=== PATIENT | female | born 1985 | race African-American/Black ===

== ENCOUNTER 2017-12-21 11:15 | Day surgery (SDC) | payer SELFPAY ==
[2017-12-21] MEDS ORDERED: Lactated Ringers 1,000 ML IV SCH (12:15)
--- NOTE | 2017-12-21 12:41 | PCM.PREANE ---
Preanesthetic Assessment - Anesthesia/Transfusion/Family Hx Anesthesia History: Prior Anesthesia Without Reaction Family History of Anesthesia Reaction: No Transfusion History: No Prior Transfusion(s) Intubation History: Unknown - Review of Systems General: No Symptoms Pulmonary: No Symptoms Cardiovascular: No Symptoms Gastrointestinal: No Symptoms Neurological: No Symptoms Other: Reports: None - Physical Assessment Height: 1.73 m Weight: 87.543 kg ASA Class: 2 Mental Status: Alert & Oriented x3 Airway Class: Mallampati = 2 Dentition: Reports: Normal Dentition Thyro-Mental Finger Breadths: 3 Mouth Opening Finger Breadths: 3 ROM/Head Extension: Full Lungs: Clear to Auscultation, Normal Respiratory Effort Cardiovascular: Regular Rate, Regular Rhythm - Allergies Allergies/Adverse Reactions: Allergies Allergy/AdvReac Type Severity Reaction Status Date / Time No Known Allergies Allergy Verified 12/21/17 08:10 - Blood Blood Available: No - Anesthesia Plan Pre-Op Medication Ordered: None - Acknowledgements Anesthesia Type Planned: General Anesthesia Pt an Appropriate Candidate for the Planned Anesthesia: Yes Alternatives and Risks of Anesthesia Discussed w Pt/Guardian: Yes Pt/Guardian Understands and Agrees with Anesthesia Plan: Yes 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
[2017-12-21] MEDS ORDERED: fentaNYL 100 MCG/2 ML SDV ONE (12:57)
[2017-12-21] MEDS ORDERED: Ondansetron 4 MG/2 ML SDV ONE (12:57)
[2017-12-21] MEDS ORDERED: Midazolam 1 MG/ML 2 ML SDV ONE (12:57)
[2017-12-21] MEDS ORDERED: Lidocaine 2% 5 ML SDV ONE (12:57)
[2017-12-21] MEDS ORDERED: Propofol 200 MG/20 ML SDV ONE (12:57)
[2017-12-21] MEDS ORDERED: Ketorolac 30 MG/ML SDV ONE (13:57)
[2017-12-21] MEDS ORDERED: fentaNYL 100 MCG/2 ML SDV IVPUSH PRN (13:59)
[2017-12-21] MEDS ORDERED: Promethazine 25 MG/ML SDV IM PRN (14:06)
[2017-12-21] MEDS ORDERED: Ketorolac 30 MG/ML SDV IVPUSH ONE (14:06)
[2017-12-21] MEDS ORDERED: Ondansetron 4 MG/2 ML SDV IVPUSH PRN (14:06)
[2017-12-21] MEDS ORDERED: Morphine 4 MG/ML Syringe IVPUSH PRN (14:06)
[2017-12-21] MEDS ORDERED: Acetaminophen/oxyCODONE 325-5 MG Tab PO PRN ×2 (14:06)
[2017-12-21] MEDS ORDERED: Ketorolac 30 MG/ML SDV IVPUSH PRN (14:06)
--- NOTE | 2017-12-21 14:10 | PCM.OPNOTE ---
- General Post-Op/Procedure Note Date of Surgery/Procedure: 12/21/17 Operative Procedure(s): D&E Pre Op Diagnosis: Blighted ovum Post-Op Diagnosis: Same Anesthesia Technique: General LMA Primary Surgeon: Fco Red EBL in mLs: 200 Complications: None Condition: Good
--- NOTE | 2017-12-21 14:11 | PCM.DCSUM1 ---
Discharge Summary - Discharge Data Discharge Date: 12/21/17 Discharge Disposition: Home, Self-Care 01 Condition: Good - Patient Summary/Data Operative Procedure(s) Performed: D&E - Patient Instructions Diet: Usual Diet as Tolerated Activity: As Tolerated Driving: Do Not Drive Showering/Bathing: May Shower Notify Provider of: Fever, Increased Pain, Nausea and/or Vomiting - Discharge Plan Home Medications: Home Meds Ondansetron HCl [Zofran] 4 mg PO Q6H PRN 12/21/17 [History] - General Info Date of Service: 12/21/17 Functional Status: Reports: Pain Controlled - Review of Systems General: Reports: No Symptoms HEENT: Reports: No Symptoms Pulmonary: Reports: No Symptoms Cardiovascular: Reports: No Symptoms Gastrointestinal: Reports: No Symptoms Genitourinary: Reports: No Symptoms Musculoskeletal: Reports: No Symptoms Skin: Reports: No Symptoms Neurological: Reports: No Symptoms Psychiatric: Reports: No Symptoms - Patient Data Vitals - Most Recent: Last Vital Signs Temp 36.7 C 12/21/17 13:44 Pulse 74 12/21/17 13:44 Resp 16 12/21/17 13:44 BP 136/79 12/21/17 13:44 Pulse Ox 98 12/21/17 13:44 Weight - Most Recent: 87.543 kg Lab Results - Last 24 hrs: Laboratory Results - last 24 hr 12/21/17 12/21/17 Range/Units 13:15 13:15 WBC 5.33 (4.0-11.0) K/uL RBC 4.30 (4.30-5.90) M/uL Hgb 12.6 (12.0-16.0) g/dL Hct 37.1 (36.0-46.0) % MCV 86.3 (80.0-98.0) fL MCH 29.3 (27.0-32.0) pg MCHC 34.0 (31.0-37.0) g/dL RDW Std Deviation 41.9 (28.0-62.0) fl RDW Coeff of Vipul 13 (11.0-15.0) % Plt Count 214 (150-400) K/uL MPV 11.20 (7.40-12.00) fL Neut % (Auto) 52.3 (48.0-80.0) % Lymph % (Auto) 41.5 H (16.0-40.0) % [place] % (Auto) 5.6 (0.0-15.0) % Eos % (Auto) 0.4 (0.0-7.0) % Baso % (Auto) 0.2 (0.0-1.5) % Neut # (Auto) 2.8 (1.4-5.7) K/uL Lymph # (Auto) 2.2 (0.6-2.4) K/uL [place] # (Auto) 0.3 (0.0-0.8) K/uL Eos # (Auto) 0.0 (0.0-0.7) K/uL Baso # (Auto) 0.0 (0.0-0.1) K/uL Nucleated RBC % 0.0 /100WBC Nucleated RBCs # 0 K/uL Blood Type O POSITIVE Antibody Screen NEGATIVE Med Orders - Current: Current Medications Fentanyl (Sublimaze) 50 mcg IVPUSH .Q5MIN PRN PRN Reason: Pain Lactated Ringer's (Ringers, Lactated) 1,000 mls @ 125 mls/hr IV ASDIRECTED REHAN Last Admin: 12/21/17 12:30 Dose: 125 mls/hr Ketorolac Tromethamine (Toradol) 30 mg IVPUSH ONETIME ONE Stop: 12/21/17 14:07 Ketorolac Tromethamine (Toradol) 30 mg IVPUSH Q6H PRN PRN Reason: Pain (severe 7-10) Stop: 12/26/17 14:06 Morphine Sulfate (Morphine) 4 mg IVPUSH Q2H PRN PRN Reason: Pain (severe 7-10) Ondansetron HCl (Zofran) 4 mg IVPUSH Q6H PRN PRN Reason: Nausea/Vomiting Oxycodone/Acetaminophen (Percocet 325-5 Mg) 1 tab PO Q4H PRN PRN Reason: Pain (moderate 4-6) Oxycodone/Acetaminophen (Percocet 325-5 Mg) 2 tab PO Q4H PRN PRN Reason: Pain (moderate 4-6) Promethazine HCl (Phenergan) 25 mg IM Q6H PRN PRN Reason: Nausea/Vomiting Discontinued Medications Fentanyl (Sublimaze) Confirm Administered Dose 100 mcg .ROUTE .STK-MED ONE Stop: 12/21/17 12:58 Ketorolac Tromethamine (Toradol) Confirm Administered Dose 30 mg .ROUTE .STK- MED ONE Stop: 12/21/17 13:58 Lidocaine (Xylocaine-Mpf 2%) Confirm Administered Dose 5 ml .ROUTE .STK-MED ONE Stop: 12/21/17 12:58 Midazolam HCl (Versed 1 Mg/Ml) Confirm Administered Dose 2 mg .ROUTE .STK-MED ONE Stop: 12/21/17 12:58 Ondansetron HCl (Zofran) Confirm Administered Dose 4 mg .ROUTE .STK-MED ONE Stop: 12/21/17 12:58 Propofol (Diprivan 20 Ml) Confirm Administered Dose 200 mg .ROUTE .STK-MED ONE Stop: 12/21/17 12:58 - Exam General: Reports: Alert, Oriented HEENT: Reports: Pupils Equal, Pupils Reactive, EOMI, Mucous Membr. Moist/Natalia Neck: Reports: Supple Lungs: Reports: Clear to Auscultation, Normal Respiratory Effort Cardiovascular: Reports: Regular Rate, Regular Rhythm GI/Abdominal Exam: Normal Bowel Sounds, Soft, Non-Tender, No Organomegaly, No Distention, No Abnormal Bruit, No Mass, Pelvis Stable (Female) Exam: Normal External Exam, Normal Speculum Exam, Normal Bimanual Exam Rectal (Female) Exam: Normal Exam, Normal Rectal Tone Back Exam: Reports: Normal Inspection, Full Range of Motion Extremities: Normal Inspection, Normal Range of Motion, Non-Tender, No Pedal Edema, Normal Capillary Refill Skin: Reports: Warm, Dry, Intact Wound/Incisions: Reports: Healing Well Neurological: Reports: No New Focal Deficit Psy/Mental Status: Reports: Alert, Normal Affect, Normal Mood
--- NOTE | 2017-12-21 14:32 | PCM.POSTAN ---
POST ANESTHESIA ASSESSMENT - MENTAL STATUS Mental Status: Alert, Oriented - RESPIRATORY Respiratory Status: Respiratory Rate WNL, Airway Patent, O2 Saturation Stable - CARDIOVASCULAR CV Status: Pulse Rate WNL - GASTROINTESTINAL GI Status: No Symptoms - PAIN Pain Score: 4 - POST OP HYDRATION Hydration Status: Adequate & Stable - OBSERVATIONS Free Text/Narrative:: no anesthesia problems
--- NOTE | 2017-12-21 15:02 | OR ---
SURGEON: Fco Red MD DATE OF PROCEDURE: PREOPERATIVE DIAGNOSIS: Blighted ovum. POSTOPERATIVE DIAGNOSIS: Blighted ovum. OPERATION PERFORMED: Dilatation and evacuation. 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 ANESTHESIA: LMA, Ariadna Bautista. ESTIMATED BLOOD LOSS: 200 mL. COMPLICATIONS: None. FINDINGS: Products of conception. INDICATION FOR SURGERY: This patient has had declining beta HCG CALDERON. She had repeated ultrasound, which shows gestational sac, no pole. PROCEDURE IN DETAIL: The patient was brought to the OR, properly identified. After adequate level of anesthesia, the patient placed in lithotomy position, prepped and draped in sterile fashion as usual. Straight catheter was used to empty the bladder and single-tooth tenaculum was applied to the cervix. The cervix sequentially dilated to accommodate #8 curved cannula. The cannula placed in endometrial cavity and endometrial cavity evacuated completely in uniformity from all products of conception. After that, the cannula was withdrawn and a small curette placed in endometrial cavity and curetting of the endometrial cavity was done to ascertain that all products of conception were removed. Next the cannula replaced in the endometrial cavity and evacuated all blood and blood clot from the endometrial cavity. At this time, the cannula was removed and there was minimum vaginal bleeding, but the total estimated blood loss was about 200 mL. The procedure ended. Instrument and sponge count was correct. The patient tolerated the procedure well, went to recovery room in stable general condition. DESHAUN / ROSA /[id number]
== END 2017-12-21 15:10 | disposition home or self-care (01) ==
LOC: MW.SDS 11:15
PROVIDERS: ATTEND Obstetrics & Gynecology
DX: O02.0 Blighted ovum and nonhydatidiform mole (principal)
CPT/HCPCS: 36415; 59812; 85025; 86850; 86900; 86901; J1885; J2250; J2405; J3010; J7120; 88305; J2704

== ENCOUNTER 2018-12-24 15:23 | Day surgery (SDC) | payer BC ==
--- NOTE | 2018-12-24 16:15 | PCM.PREANE ---
Preanesthetic Assessment - Anesthesia/Transfusion/Family Hx Anesthesia History: Prior Anesthesia Without Reaction Family History of Anesthesia Reaction: No Transfusion History: No Prior Transfusion(s) Intubation History: Unknown - Review of Systems General: No Symptoms Pulmonary: No Symptoms Cardiovascular: No Symptoms Gastrointestinal: No Symptoms Neurological: No Symptoms Other: Reports: None - Physical Assessment O2 Sat by Pulse Oximetry: 100 Respiratory Rate: 16 Vital Signs: Last Vital Signs Temp 36.6 C 12/24/18 15:39 Pulse 61 12/24/18 15:39 Resp 16 12/24/18 15:39 BP 122/73 12/24/18 15:39 Pulse Ox 100 12/24/18 15:39 Height: 1.73 m Weight: 86.863 kg ASA Class: 1E Mental Status: Alert & Oriented x3 Airway Class: Mallampati = 1 Dentition: Reports: Normal Dentition ROM/Head Extension: Full Lungs: Clear to Auscultation Cardiovascular: Regular Rate - Lab Values: Laboratory Last Values WBC 5.54 K/uL (4.0-11.0) 12/24/18 15:53 RBC 4.41 M/uL (4.30-5.90) 12/24/18 15:53 Hgb 12.6 g/dL (12.0-16.0) 12/24/18 15:53 Hct 38.4 % (36.0-46.0) 12/24/18 15:53 MCV 87.1 fL (80.0-98.0) 12/24/18 15:53 MCH 28.6 pg (27.0-32.0) 12/24/18 15:53 MCHC 32.8 g/dL (31.0-37.0) 12/24/18 15:53 RDW Std Deviation 40.3 fl (28.0-62.0) 12/24/18 15:53 RDW Coeff of Vipul 13 % (11.0-15.0) 12/24/18 15:53 Plt Count 303 K/uL (150-400) 12/24/18 15:53 MPV 11.10 fL (7.40-12.00) 12/24/18 15:53 Neut % (Auto) 50.3 % (48.0-80.0) 12/24/18 15:53 Lymph % (Auto) 41.5 % (16.0-40.0) H 12/24/18 15:53 [place] % (Auto) 6.7 % (0.0-15.0) 12/24/18 15:53 Eos % (Auto) 1.3 % (0.0-7.0) 12/24/18 15:53 Baso % (Auto) 0.2 % (0.0-1.5) 12/24/18 15:53 Neut # (Auto) 2.8 K/uL (1.4-5.7) 12/24/18 15:53 Lymph # (Auto) 2.3 K/uL (0.6-2.4) 12/24/18 15:53 [place] # (Auto) 0.4 K/uL (0.0-0.8) 12/24/18 15:53 Eos # (Auto) 0.1 K/uL (0.0-0.7) 12/24/18 15:53 Baso # (Auto) 0.0 K/uL (0.0-0.1) 12/24/18 15:53 Nucleated RBC % 0.0 /100WBC 12/24/18 15:53 Nucleated RBCs # 0 K/uL 12/24/18 15:53 - Allergies Allergies/Adverse Reactions: Allergies Allergy/AdvReac Type Severity Reaction Status Date / Time No Known Allergies Allergy Verified 12/21/17 08:10 - Acknowledgements Anesthesia Type Planned: General Anesthesia Pt an Appropriate Candidate for the Planned Anesthesia: Yes Alternatives and Risks of Anesthesia Discussed w Pt/Guardian: Yes Pt/Guardian Understands and Agrees with Anesthesia Plan: Yes 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
[2018-12-24] MEDS ORDERED: Doxycycline 100 MG Cap PO ONE (16:22)
[2018-12-24] MEDS ORDERED: fentaNYL 100 MCG/2 ML SDV ONE ×2 (16:45→18:17)
[2018-12-24] MEDS ORDERED: Propofol 200 MG/20 ML SDV ONE (16:45)
[2018-12-24] MEDS ORDERED: Dexamethasone 4 MG/ML 5 ML MDV ONE (16:45)
[2018-12-24] MEDS ORDERED: Ondansetron 4 MG/2 ML SDV ONE (16:45)
[2018-12-24] MEDS ORDERED: Rocuronium 100 MG/10 ML Syringe ONE (16:45)
[2018-12-24] MEDS ORDERED: Midazolam 1 MG/ML 2 ML SDV ONE (16:45)
[2018-12-24] MEDS ORDERED: Sodium Chloride 0.9% 10 ML Syringe FLUSH PRN (17:21)
[2018-12-24] MEDS ORDERED: Sodium Chloride 0.9% 2.5 ML Syringe FLUSH PRN (17:21)
[2018-12-24] MEDS ORDERED: Sodium Chloride 0.9% 10 ML SDV IV PRN (17:21)
[2018-12-24] MEDS ORDERED: Lactated Ringers 1,000 ML IV SCH (17:30)
[2018-12-24] MEDS ORDERED: Misoprostol 200 MCG Tab ONE (17:37)
[2018-12-24] MEDS ORDERED: Promethazine 25 MG/ML SDV IM PRN (18:58)
[2018-12-24] MEDS ORDERED: Acetaminophen/oxyCODONE 325-5 MG Tab PO PRN ×2 (18:58)
[2018-12-24] MEDS ORDERED: Ketorolac 30 MG/ML SDV IVPUSH ONE (18:58)
[2018-12-24] MEDS ORDERED: Ondansetron 4 MG/2 ML SDV IVPUSH PRN (18:58)
[2018-12-24] MEDS ORDERED: Ketorolac 30 MG/ML SDV IVPUSH PRN (18:58)
[2018-12-24] MEDS ORDERED: Morphine 4 MG/ML Syringe IVPUSH PRN (18:58)
--- NOTE | 2018-12-24 19:04 | PCM.OPNOTE ---
- General Post-Op/Procedure Note Date of Surgery/Procedure: 12/24/18 Operative Procedure(s): Suction Dilatation and Curettage Findings: EUA showed 8 week sized uterus Cervix opened Moderate amount of products of conception Pre Op Diagnosis: Recurrent . Incomplete Post-Op Diagnosis: Recurrent . Incomplete at 8w5d Anesthesia Technique: Other (see below) (General) Primary Surgeon: Nicolasa Amin Pathology: Product sent for Pathology and Chromosome analysis Fluid Replacement, Intraop: 600 EBL in mLs: 50 Complications: None Condition: Good
--- NOTE | 2018-12-24 19:21 | PCM.POSTAN ---
POST ANESTHESIA ASSESSMENT - MENTAL STATUS Mental Status: Alert, Oriented - RESPIRATORY Respiratory Status: Respiratory Rate WNL, Airway Patent, O2 Saturation Stable - CARDIOVASCULAR CV Status: Pulse Rate WNL, Blood Pressure Stable - GASTROINTESTINAL GI Status: No Symptoms - POST OP HYDRATION Hydration Status: Adequate & Stable
--- NOTE | 2018-12-25 10:41 | OR ---
SURGEON: GISSELL MAGANA DATE OF PROCEDURE:12/24/2018 PREOPERATIVE DIAGNOSIS: A 33-year-old, G4, P1-0-2-1 at 8 weeks 5 days with incomplete POSTOPERATIVE DIAGNOSIS: A 33-year-old, G4, P1-0-2-1 at 8 weeks 5 days with incomplete . PROCEDURE: Suction dilatation and curettage. ESTIMATED BLOOD LOSS: 50 mL. IV FLUIDS: 600. ANESTHESIA: General. SPECIMEN: Endometrial curetting. FINDINGS: The bimanual exam showed about an 8-week size uterus. The cervix was slightly opened and moderate amount of tissue obtained. BRIEF HISTORY: She came in for routine care, was found to have a missed . She opted for medical treatment with Cytotec. The patient was seen 2 weeks after, she complained of heavy vagina bleeding. She denied any fever. As a result, ultrasound was done. Ultrasound showed some heterogenicity within the uterus with increased blood flow. As a result, incomplete was diagnosed and the patient was given 200 mg of doxycycline. As a result of this, the patient was counseled for suction D and C. she was explained the risks, benefits, and alternatives. The patient desired to proceed. DESCRIPTION OF PROCEDURE: The patient was taken to the operating room where a general anesthesia was administered without difficulty. She was prepared and draped in the dorsal lithotomy position with an Vik stirrups. The bivalve speculum was placed into the cervix and the anterior lip of the cervix was grasped with Allis forceps. It was noted that the cervix was dilated to accommodate the 8 mm plastic curette. The curette was gradually introduced into the cervix to get to the fundus of the uterus and the suction was started. Moderate products of conception were retrieved. Again, a sharp curette was then placed in and gently curettage was done in all quadrants. A gritty sensation was felt. The suction was then placed again into the uterine cavity to evacuate it. All the products were sent for chromosome analysis and also sent for pathology because of the patient's history. The patient tolerated the procedure well. All instrument and pad counts were correct x2. The patient will go home and will follow up in 2 weeks. PANCHO / ROSA /[id number] COLEMAN
== END 2018-12-24 21:35 | disposition home or self-care (01) ==
LOC: MW.SDS 15:23 → MW.MS 15:28 → MW.SDS 21:35
PROVIDERS: ATTEND Obstetrics & Gynecology
DX: O03.4 Incomplete spontaneous abortion without complication (principal); O02.89 Other abnormal products of conception; O43.811 Placental infarction, first trimester; Z3A.08 8 weeks gestation of pregnancy
CPT/HCPCS: 36415; 59812; 85025; 86850; 86900; 86901; 88233; A9270; J0131; J0330; J1100; J1885; J2001; J2250; J2405; J2704; J3010; 01965

== ENCOUNTER 2019-11-21 05:17 | Inpatient (IN) | payer BC, SELFPAY ==
[2019-11-21] MEDS ORDERED: Sodium Chloride 0.9% 2.5 ML Syringe FLUSH PRN (05:40)
[2019-11-21] MEDS ORDERED: Sodium Chloride 0.9% 10 ML SDV IV PRN (05:40)
[2019-11-21] MEDS ORDERED: Sodium Chloride 0.9% 10 ML Syringe FLUSH PRN (05:40)
[2019-11-21] MEDS: Lactated Ringers 1,000 ML IV SCH ×4 (06:10→19:33)
--- NOTE | 2019-11-21 07:06 | PCM.PREANE ---
Preanesthetic Assessment - Anesthesia/Transfusion/Family Hx Anesthesia History: Prior Anesthesia Without Reaction Family History of Anesthesia Reaction: No Transfusion History: No Prior Transfusion(s) Intubation History: Unknown - Review of Systems General: No Symptoms Pulmonary: No Symptoms Cardiovascular: No Symptoms Gastrointestinal: No Symptoms Neurological: No Symptoms Other: Reports: None - Physical Assessment Height: 5 ft 8 in Weight: 86.455 kg ASA Class: 2 Mental Status: Alert & Oriented x3 Airway Class: Mallampati = 2 Dentition: Reports: Normal Dentition Thyro-Mental Finger Breadths: 3 Mouth Opening Finger Breadths: 3 ROM/Head Extension: Full Lungs: Clear to Auscultation, Normal Respiratory Effort Cardiovascular: Regular Rate, Regular Rhythm - Lab Values: Laboratory Last Values WBC 6.14 K/uL (4.0-11.0) 11/21/19 05:54 RBC 4.11 M/uL (4.30-5.90) L 11/21/19 05:54 Hgb 11.3 g/dL (12.0-16.0) L 11/21/19 05:54 Hct 34.9 % (36.0-46.0) L 11/21/19 05:54 MCV 84.9 fL (80.0-98.0) 11/21/19 05:54 MCH 27.5 pg (27.0-32.0) 11/21/19 05:54 MCHC 32.4 g/dL (31.0-37.0) 11/21/19 05:54 RDW Std Deviation 41.4 fl (28.0-62.0) 11/21/19 05:54 RDW Coeff of Vipul 14 % (11.0-15.0) 11/21/19 05:54 Plt Count 162 K/uL (150-400) 11/21/19 05:54 MPV 11.40 fL (7.40-12.00) 11/21/19 05:54 Nucleated RBC % 0.0 /100WBC 11/21/19 05:54 Nucleated RBCs # 0 K/uL 11/21/19 05:54 Blood Type O POSITIVE 11/21/19 05:54 Antibody Screen NEGATIVE 11/21/19 05:54 - Allergies Allergies/Adverse Reactions: Allergies Allergy/AdvReac Type Severity Reaction Status Date / Time No Known Allergies Allergy Verified 11/21/19 05:40 - Blood Blood Available: No - Anesthesia Plan Pre-Op Medication Ordered: None - Acknowledgements Anesthesia Type Planned: Spinal (general anesthesia back-up plan) Pt an Appropriate Candidate for the Planned Anesthesia: Yes Alternatives and Risks of Anesthesia Discussed w Pt/Guardian: Yes Pt/Guardian Understands and Agrees with Anesthesia Plan: Yes PreAnesthesia Questionnaire - Past Health History Medical/Surgical History: Denies Medical/Surgical History Respiratory History: Reports: None Gastrointestinal History: Reports: None Genitourinary History: Reports: None 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: Musculoskeletal History: Reports: None Neurological History: Reports: None Endocrine/Metabolic History: Reports: Obesity/BMI 30+ Hematologic History: Reports: None Dermatologic History: Reports: None - Infectious Disease History Infectious Disease History: Reports: None - Past Surgical History Head Surgeries/Procedures: Reports: None Female Surgical History: Reports: Section - SUBSTANCE USE Smoking Status *Q: Never Smoker Recreational Drug Use History: No - HOME MEDS Home Medications: Home Meds #103/Iron Fumarate/Fa [ ] 1 tab PO DAILY 11/16/19 [ History] - CURRENT (IN HOUSE) MEDS Current Meds: Current Medications Citric Acid/Sodium Citrate (Bicitra Solution) 30 ml PO ONETIME ONE Stop: 11/21/19 08:01 Cefazolin Sodium/Dextrose 2 gm (/ Premix) 50 mls @ 100 mls/hr IV ONETIME ONE Stop: 11/21/19 08:29 Lactated Ringer's (Ringers, Lactated) 1,000 mls @ 500 mls/hr IV BOLUS RE[facility]AN Last Admin: 11/21/19 06:10 Dose: 999 mls/hr Oxytocin/Sodium Chloride (Oxytocin 30 Unit/500 Ml-Ns) 30 unit in 500 mls @ 250 mls/hr IV TITRATE REHAN Sodium Chloride (Saline Flush) 10 ml FLUSH ASDIRECTED PRN PRN Reason: Keep Vein Open Sodium Chloride (Saline Flush) 2.5 ml FLUSH ASDIRECTED PRN PRN Reason: Keep Vein Open Sodium Chloride (Normal Saline) 10 ml IV ASDIRECTED PRN PRN Reason: IV Use
[2019-11-21] MEDS ORDERED: Propofol 200 MG/20 ML SDV ONE (07:16)
[2019-11-21] MEDS ORDERED: Morphine PF 10 MG/10 ML SDV ONE (07:16)
[2019-11-21] MEDS ORDERED: ePHEDrine 50 MG/ML SDV ONE (07:17)
[2019-11-21] MEDS ORDERED: Sodium Chloride 0.9% 40 ML ONE (07:17)
[2019-11-21] MEDS ORDERED: ceFAZolin 1 GM Vial ONE (07:17)
[2019-11-21] MEDS ORDERED: Oxytocin/0.9 % Sodium Chloride 30 UNIT/500 ML BAG IV SCH (08:00)
[2019-11-21] MEDS ORDERED: Citric Acid/Sodium Citrate Solution 30 ML Cup PO ONE (08:00)
[2019-11-21] MEDS ORDERED: ceFAZolin 2 GM in Premix Bag 1 BAG IV ONE (08:00)
[2019-11-21] MEDS ORDERED: diphenhydrAMINE 50 MG/ML SDV IVPUSH PRN ×2 (08:56→09:35)
[2019-11-21] MEDS ORDERED: Acetaminophen/oxyCODONE 325-5 MG Tab PO PRN ×2 (08:56→09:35)
[2019-11-21] MEDS ORDERED: Ondansetron 4 MG/2 ML SDV IVPUSH PRN ×2 (08:56→09:35)
[2019-11-21] MEDS ORDERED: Naloxone 0.4 MG/ML Syringe IVPUSH PRN (08:56)
[2019-11-21] MEDS ORDERED: fentaNYL 100 MCG/2 ML SDV IVPUSH PRN (08:56)
[2019-11-21] MEDS ORDERED: Nalbuphine 10 MG/1 ML Vial IVPUSH PRN (08:56)
[2019-11-21] MEDS ORDERED: Methylergonovine 0.2 MG/1 ML Amp IM PRN (09:35)
[2019-11-21] MEDS ORDERED: Oxytocin 10 Units/1 ML SDV IM PRN (09:35)
[2019-11-21] MEDS ORDERED: Bisacodyl 10 MG Supp RECTAL PRN (09:35)
[2019-11-21] MEDS ORDERED: Lanolin 100% Cream 7 GM Tube TOP PRN (09:35)
[2019-11-21] MEDS ORDERED: Ibuprofen 800 MG Tab PO PRN (09:35)
[2019-11-21] MEDS ORDERED: Misoprostol 200 MCG Tab RECTAL PRN (09:35)
[2019-11-21] MEDS ORDERED: Tranexamic Acid 1,000 MG in Sodium Chloride 0.9% 100 ML IV PRN (09:35)
--- NOTE | 2019-11-21 09:42 | PCM.OPNOTE ---
- General Post-Op/Procedure Note Date of Surgery/Procedure: 11/21/19 Operative Procedure(s): Repeat Lower segment cesearean section Findings: Live female delivered at 824am , , wt 2890 , 9/9 Pre Op Diagnosis: 34yo @ 39w2d for Repeat Post-Op Diagnosis: same Anesthesia Technique: Spinal Primary Surgeon: Nicolasa Amin Anesthesia Provider: Tommy Guadalupe Fluid Replacement, Intraop: 1,500 Output, Urine Amount: 50 EBL in mLs: 500 Complications: None Condition: Good
[2019-11-21] MEDS ORDERED: Oxytocin/Lactated Ringers 30 UNIT/500 ML BAG IV SCH (09:45)
[2019-11-21] MEDS: Ketorolac 30 MG/ML SDV IVPUSH SCH ×3 (09:52→21:52)
--- NOTE | 2019-11-21 09:54 | PCM.POSTAN ---
POST ANESTHESIA ASSESSMENT - MENTAL STATUS Mental Status: Alert - RESPIRATORY Respiratory Status: Respiratory Rate WNL - CARDIOVASCULAR CV Status: Pulse Rate WNL - GASTROINTESTINAL GI Status: No Symptoms - PAIN Pain Score: 0 (SAB regressing) - POST OP HYDRATION Hydration Status: Adequate & Stable (Doing well. No problems noted.)
--- NOTE | 2019-11-21 10:34 | OR ---
SURGEON: GISSELL MAGANA DATE OF PROCEDURE:11/21/2019 PREOPERATIVE DIAGNOSES: A 34-year-old G4, P1-0-2-1 at 39 weeks 2 days for repeat section. POSTOPERATIVE DIAGNOSIS: A 34-year-old G4, P1-0-2-1 at 39 weeks 2 days for repeat section. PROCEDURE: Repeat lower segment transverse section. ANAESTHESIA: Spinal ESTIMATED BLOOD LOSS: 500. IV FLUID: 1500. URINE OUTPUT: 500. NOTES AND FINDINGS: Live female delivered at 8:24 a.m. scores are 9 and 9. Weight is 2490 g.Thin Lower uterine segment. BRIEF HISTORY ABOUT THE PATIENT: She is a 34-year-old G4, P1-0-2-1 at 39 weeks and 2 days, who is a low-risk patient. She was declining a , wanted a repeat lower section. She was explained the risks, benefits, and alternatives, and she wanted to proceed. DESCRIPTION OF PROCEDURE: The patient was taken to the operating room. Where spinal anesthesia was done without difficulty. She was prepared and draped in the dorsal supine position with a leftward tilt. A Pfannenstiel skin incision was made with a scalpel and carried down to the fascia with the Bovie. The fascia was incised and extended upwards and laterally. The fascia was from the rectus muscles superiorly and inferiorly. The rectus muscle was in the midline down to the level of pubic symphysis. The peritoneum was then opened with the aid of the Metzenbaum scissors. The peritoneum was stretched upward and laterally to expose the bladder reflection. The lower uterine segment was noted to be thin. The lower uterine incision was made and the bladder flap was created. Incision was then made, was extended outward and upward manually. The fetus was in cephalic position, was brought to the level of the incision. Then, the fetus was delivered without any difficulty with pressure on the abdomen. The delayed cord clamping was observed. The cord was clamped and cut. Infant was handed over to the awaiting nursery nurse. The placenta was delivered by removal of the placenta with manual massage of the uterine fundus. The cavity of the uterus was cleaned without any difficulty. The uterus was closed in 2 layers, first layer with 0 Vicryl, second layer with 2-0 Monocryl. The Efra retractor was then removed. The peritoneum was then closed after the incision was inspected and noted to be hemostatic. The gutters were cleaned. The tubes and ovary were noted to be normal. Then, the peritoneum was closed with 2-0 Vicryl in a continuous fashion. The rectus muscles were apposed in the midline without any difficulty, and the fascia was closed with 0 Vicryl in a continuous fashion. The skin was closed with 3-0 Monocryl on a Kain needle. All instrument and pad counts were correct x2. The patient tolerated the procedure well and was taken to the recovery room in stable condition. PANCHO LEE /[id number] MTDGibson
[2019-11-21] MEDS ORDERED: Metoclopramide 10 MG/2 ML SDV ONE (13:56)
[2019-11-21] MEDS: Metoclopramide 10 MG/2 ML SDV IVPUSH SCH ×2 (14:00→20:06)
[2019-11-21] MEDS ORDERED: Desflurane 240 ML Bottle ONE (15:10)
[2019-11-21] MEDS: Docusate Sodium 100 MG Cap PO SCH (21:52)
[2019-11-22] MEDS: Metoclopramide 10 MG/2 ML SDV IVPUSH SCH ×4 (02:49→20:15)
[2019-11-22] MEDS: Ketorolac 30 MG/ML SDV IVPUSH SCH ×2 (02:53→10:10)
[2019-11-22] MEDS: Lactated Ringers 1,000 ML IV SCH (02:56)
[2019-11-22] MEDS: Docusate Sodium 100 MG Cap PO SCH ×2 (08:21→20:14)
--- NOTE | 2019-11-22 09:14 | PCM48HPAN ---
Post Anesthesia Note - EVALUATION WITHIN 48HRS OF ANESTHETIC Vital Signs in Normal Range: Yes Patient Participated in Evaluation: Yes Respiratory Function Stable: Yes Airway Patent: Yes Cardiovascular Function Stable: Yes Hydration Status Stable: Yes Pain Control Satisfactory: Yes Nausea and Vomiting Control Satisfactory: Yes (Some issues with nausea early.) Mental Status Recovered: Yes Vital Signs: Last Vital Signs Temp 36.7 C 11/22/19 08:00 Pulse 85 11/22/19 08:00 Resp 16 11/22/19 08:00 BP 103/66 11/22/19 08:00 Pulse Ox 98 11/22/19 08:56 - COMMENTS/OBSERVATIONS Free Text/Narrative:: Resting quietly. no c/o's.
[2019-11-22] MEDS: Acetaminophen/oxyCODONE 325-5 MG Tab PO PRN ×2 (15:53→20:11)
--- NOTE | 2019-11-22 17:24 | PCM.PNPP ---
- General Info Date of Service: 11/22/19 Subjective Update: Patient seen at bedside , she denies any complains today , Patel in yet to void Functional Status: Reports: Pain Controlled, Tolerating Diet, Ambulating, Urinating - Review of Systems General: Reports: No Symptoms HEENT: Reports: No Symptoms Pulmonary: Reports: No Symptoms Cardiovascular: Reports: No Symptoms Gastrointestinal: Reports: No Symptoms Genitourinary: Reports: No Symptoms Musculoskeletal: Reports: No Symptoms Skin: Reports: No Symptoms Neurological: Reports: No Symptoms Psychiatric: Reports: No Symptoms - General Info Date of Service: 11/22/19 - Patient Data Vital Signs - Most Recent: Last Vital Signs Temp 36.7 C 11/22/19 16:09 Pulse 85 11/22/19 16:09 Resp 16 11/22/19 16:09 BP 103/66 11/22/19 16:09 Pulse Ox 95 11/22/19 16:09 Weight - Most Recent: 86.455 kg I&O - Last 24 Hours: Intake & Output 11/22/19 11/22/19 11/22/19 06:59 14:59 22:59 Intake Total 2400 Output Total 650 Balance 1750 Lab Results - Last 24 Hours: Laboratory Results - last 24 hr 11/22/19 Range/Units 06:00 Hgb 11.1 L (12.0-16.0) g/dL Hct 34.3 L (36.0-46.0) % Med Orders - Current: Current Medications Bisacodyl (Dulcolax) 10 mg RECTAL ONETIME PRN PRN Reason: Constipation Diphenhydramine HCl (Benadryl) 25 mg IVPUSH Q6H PRN PRN Reason: Itching or Nausea Docusate Sodium (Colace) 100 mg PO BID [facility] Last Admin: 11/22/19 08:21 Dose: 100 mg Emollient Ointment (Lansinoh Hpa) 0 gm TOP ASDIRECTED PRN PRN Reason: Sore Nipples Fentanyl (Sublimaze) 50 mcg IVPUSH Q1H PRN PRN Reason: Pain (severe 7-10) Lactated Ringer's (Ringers, Lactated) 1,000 mls @ 500 mls/hr IV BOLUS [facility] Last Admin: 11/21/19 07:06 Dose: 999 mls/hr Oxytocin/Sodium Chloride (Oxytocin 30 Unit/500 Ml-Ns) 30 unit in 500 mls @ 250 mls/hr IV TITRATE [facility] Tranexamic Acid 1,000 mg/ (Sodium Chloride) 110 mls @ 660 mls/hr IV ONETIME PRN PRN Reason: Bleeding Lactated Ringer's (Ringers, Lactated) 1,000 mls @ 125 mls/hr IV ASDIRECTED [facility] Last Admin: 11/22/19 02:56 Dose: 125 mls/hr Oxytocin/Lactated Ringer's (Pitocin In Lr 30 Units/500 Ml) 30 unit in 500 mls @ 166 mls/hr IV TITRATE [facility]; Protocol Ibuprofen (Motrin) 800 mg PO Q8H PRN PRN Reason: mild pain or fever Methylergonovine Maleate (Methergine) 0.2 mg IM ONETIME PRN PRN Reason: Excessive Vaginal Bleeding Metoclopramide HCl (Reglan) 5 mg IVPUSH Q6H [facility]; Protocol Last Admin: 11/22/19 14:09 Dose: Not Given Misoprostol (Cytotec) 1,000 mcg RECTAL ONETIME PRN PRN Reason: excessive bleeding Nalbuphine HCl (Nubain) 5 mg IVPUSH ASDIRECTED PRN PRN Reason: Itching Ondansetron HCl (Zofran) 4 mg IVPUSH Q6H PRN PRN Reason: Nausea Last Admin: 11/21/19 11:32 Dose: 4 mg Ondansetron HCl (Zofran) 4 mg IVPUSH Q4H PRN PRN Reason: Nausea/Vomiting Last Admin: 11/21/19 16:13 Dose: 4 mg Oxycodone/Acetaminophen (Percocet 325-5 Mg) 2 tab PO Q6H PRN PRN Reason: Pain (moderate 4-6) Oxycodone/Acetaminophen (Percocet 325-5 Mg) 1 tab PO Q4H PRN PRN Reason: Pain (moderate 4-6) Oxycodone/Acetaminophen (Percocet 325-5 Mg) 2 tab PO Q4H PRN PRN Reason: Pain (moderate 4-6) Last Admin: 11/22/19 15:53 Dose: 2 tab Oxytocin (Pitocin) 10 unit IM ASDIRECTED PRN PRN Reason: Excessive Vaginal Bleeding Sodium Chloride (Saline Flush) 10 ml FLUSH ASDIRECTED PRN PRN Reason: Keep Vein Open Sodium Chloride (Saline Flush) 2.5 ml FLUSH ASDIRECTED PRN PRN Reason: Keep Vein Open Sodium Chloride (Normal Saline) 10 ml IV ASDIRECTED PRN PRN Reason: IV Use Discontinued Medications Cefazolin Sodium (Ancef) Confirm Administered Dose 2 gm .ROUTE .STK-MED ONE Stop: 11/21/19 07:18 Citric Acid/Sodium Citrate (Bicitra Solution) 30 ml PO ONETIME ONE Stop: 11/21/19 08:01 Desflurane (Suprane) Confirm Administered Dose 480 ml .ROUTE .STK-MED ONE Stop: 11/21/19 15:11 Diphenhydramine HCl (Benadryl) 25 mg IVPUSH Q4H PRN PRN Reason: Itching Stop: 11/22/19 08:56 Ephedrine Sulfate (Ephedrine Sulfate) Confirm Administered Dose 100 mg .ROUTE .STK-MED ONE Stop: 11/21/19 07:18 Cefazolin Sodium/Dextrose 2 gm (/ Premix) 50 mls @ 100 mls/hr IV ONETIME ONE Stop: 11/21/19 08:29 Sodium Chloride (Normal Saline) Confirm Administered Dose 40 mls @ as directed .ROUTE .STK-MED ONE Stop: 11/21/19 07:18 Acetaminophen (Ofirmev) Confirm Administered Dose 100 mls @ as directed .ROUTE .STK-MED ONE Stop: 11/21/19 07:25 Ketorolac Tromethamine (Toradol) 30 mg IVPUSH Q6H [facility] Stop: 11/22/19 09:46 Last Admin: 11/22/19 10:10 Dose: 30 mg Metoclopramide HCl (Reglan) Confirm Administered Dose 10 mg .ROUTE .STK-MED ONE Stop: 11/21/19 13:57 Morphine Sulfate (Duramorph Pf) Confirm Administered Dose 10 mg .ROUTE .STK-MED ONE Stop: 11/21/19 07:17 Naloxone HCl (Narcan) 0.1 mg IVPUSH ONETIME PRN PRN Reason: Respiratory Depression Stop: 11/22/19 08:56 Propofol (Diprivan 20 Ml) Confirm Administered Dose 200 mg .ROUTE .STK-MED ONE Stop: 11/21/19 07:17 - Interaction Support Person: - Recovery Exam Fundal Tone: Firm Fundal Level: 2 Fingerbreadths Below Umbilicus Fundal Placement: Midline Lochia Amount: Small Lochia Color: Rubra/Red Perineum Description: Intact, Minimal Bruising/Swelling Bladder Status: Indwelling Catheter in Place Urinary Elimination: Indwelling Catheter - Exam General: Alert HEENT: Pupils Equal Neck: Supple Lungs: Clear to Auscultation Cardiovascular: Regular Rate, Regular Rhythm GI/Abdominal Exam: Normal Bowel Sounds Extremities: Normal Inspection Wound/Incisions: Dressing Dry and Intact Neurological: No New Focal Deficit - Problem List & Annotations (1) delivery delivered SNOMED Code(s): 425765215 Code(s): O82 - ENCOUNTER FOR DELIVERY WITHOUT INDICATION Status: Acute Current Visit: Yes - Problem List Review Problem List Initiated/Reviewed/Updated: Yes - My Orders Last 24 Hours: My Active Orders 11/21/19 21:00 Docusate Sodium [Colace] 100 mg PO BID 11/22/19 Breakfast Regular Diet [DIET] - Assessment Assessment:: 34yo P2 s/p repeat Normal lochia , Patel in , tolerating regular diet Venodyne in place - Plan Plan:: Regular diet Pain control as needed Incentive spirometry Venodynes Remove patel follow void
[2019-11-23] MEDS: Acetaminophen/oxyCODONE 325-5 MG Tab PO PRN ×2 (00:38→05:45)
[2019-11-23] MEDS: Metoclopramide 10 MG/2 ML SDV IVPUSH SCH (01:56)
--- NOTE | 2019-11-23 07:54 | PCM.PNPP ---
- General Info Date of Service: 11/23/19 Subjective Update: Patient seen at bedside , normal lochia , Functional Status: Reports: Pain Controlled, Tolerating Diet, Ambulating, Urinating - Review of Systems General: Reports: No Symptoms HEENT: Reports: No Symptoms Pulmonary: Reports: No Symptoms Cardiovascular: Reports: No Symptoms Gastrointestinal: Reports: No Symptoms Genitourinary: Reports: No Symptoms Musculoskeletal: Reports: No Symptoms Skin: Reports: No Symptoms Neurological: Reports: No Symptoms Psychiatric: Reports: No Symptoms - General Info Date of Service: 11/23/19 - Patient Data Vital Signs - Most Recent: Last Vital Signs Temp 37.1 C 11/23/19 05:35 Pulse 71 11/23/19 04:38 Resp 19 11/23/19 05:35 BP 126/78 11/23/19 05:35 Pulse Ox 100 11/23/19 05:35 Weight - Most Recent: 86.455 kg I&O - Last 24 Hours: Intake & Output 11/22/19 11/23/19 11/23/19 22:59 06:59 14:59 Intake Total 1200 Output Total 860 Balance 340 Med Orders - Current: Current Medications Bisacodyl (Dulcolax) 10 mg RECTAL ONETIME PRN PRN Reason: Constipation Diphenhydramine HCl (Benadryl) 25 mg IVPUSH Q6H PRN PRN Reason: Itching or Nausea Docusate Sodium (Colace) 100 mg PO BID [facility] Last Admin: 11/22/19 20:14 Dose: 100 mg Emollient Ointment (Lansinoh Hpa) 0 gm TOP ASDIRECTED PRN PRN Reason: Sore Nipples Last Admin: 11/22/19 20:05 Dose: 1 applic Fentanyl (Sublimaze) 50 mcg IVPUSH Q1H PRN PRN Reason: Pain (severe 7-10) Lactated Ringer's (Ringers, Lactated) 1,000 mls @ 500 mls/hr IV BOLUS [facility] Last Admin: 11/21/19 07:06 Dose: 999 mls/hr Oxytocin/Sodium Chloride (Oxytocin 30 Unit/500 Ml-Ns) 30 unit in 500 mls @ 250 mls/hr IV TITRATE [facility] Tranexamic Acid 1,000 mg/ (Sodium Chloride) 110 mls @ 660 mls/hr IV ONETIME PRN PRN Reason: Bleeding Lactated Ringer's (Ringers, Lactated) 1,000 mls @ 125 mls/hr IV ASDIRECTED [facility] Last Admin: 11/22/19 02:56 Dose: 125 mls/hr Oxytocin/Lactated Ringer's (Pitocin In Lr 30 Units/500 Ml) 30 unit in 500 mls @ 166 mls/hr IV TITRATE [facility]; Protocol Ibuprofen (Motrin) 800 mg PO Q8H PRN PRN Reason: mild pain or fever Last Admin: 11/22/19 19:10 Dose: 800 mg Methylergonovine Maleate (Methergine) 0.2 mg IM ONETIME PRN PRN Reason: Excessive Vaginal Bleeding Metoclopramide HCl (Reglan) 5 mg IVPUSH Q6H [facility]; Protocol Last Admin: 11/23/19 01:56 Dose: Not Given Misoprostol (Cytotec) 1,000 mcg RECTAL ONETIME PRN PRN Reason: excessive bleeding Nalbuphine HCl (Nubain) 5 mg IVPUSH ASDIRECTED PRN PRN Reason: Itching Ondansetron HCl (Zofran) 4 mg IVPUSH Q6H PRN PRN Reason: Nausea Last Admin: 11/21/19 11:32 Dose: 4 mg Ondansetron HCl (Zofran) 4 mg IVPUSH Q4H PRN PRN Reason: Nausea/Vomiting Last Admin: 11/21/19 16:13 Dose: 4 mg Oxycodone/Acetaminophen (Percocet 325-5 Mg) 2 tab PO Q6H PRN PRN Reason: Pain (moderate 4-6) Oxycodone/Acetaminophen (Percocet 325-5 Mg) 1 tab PO Q4H PRN PRN Reason: Pain (moderate 4-6) Oxycodone/Acetaminophen (Percocet 325-5 Mg) 2 tab PO Q4H PRN PRN Reason: Pain (moderate 4-6) Last Admin: 11/23/19 05:45 Dose: 2 tab Oxytocin (Pitocin) 10 unit IM ASDIRECTED PRN PRN Reason: Excessive Vaginal Bleeding Sodium Chloride (Saline Flush) 10 ml FLUSH ASDIRECTED PRN PRN Reason: Keep Vein Open Sodium Chloride (Saline Flush) 2.5 ml FLUSH ASDIRECTED PRN PRN Reason: Keep Vein Open Sodium Chloride (Normal Saline) 10 ml IV ASDIRECTED PRN PRN Reason: IV Use Discontinued Medications Cefazolin Sodium (Ancef) Confirm Administered Dose 2 gm .ROUTE .STK-MED ONE Stop: 11/21/19 07:18 Citric Acid/Sodium Citrate (Bicitra Solution) 30 ml PO ONETIME ONE Stop: 11/21/19 08:01 Desflurane (Suprane) Confirm Administered Dose 480 ml .ROUTE .STK-MED ONE Stop: 11/21/19 15:11 Diphenhydramine HCl (Benadryl) 25 mg IVPUSH Q4H PRN PRN Reason: Itching Stop: 11/22/19 08:56 Ephedrine Sulfate (Ephedrine Sulfate) Confirm Administered Dose 100 mg .ROUTE .STK-MED ONE Stop: 11/21/19 07:18 Cefazolin Sodium/Dextrose 2 gm (/ Premix) 50 mls @ 100 mls/hr IV ONETIME ONE Stop: 11/21/19 08:29 Sodium Chloride (Normal Saline) Confirm Administered Dose 40 mls @ as directed .ROUTE .STK-MED ONE Stop: 11/21/19 07:18 Acetaminophen (Ofirmev) Confirm Administered Dose 100 mls @ as directed .ROUTE .STK-MED ONE Stop: 11/21/19 07:25 Ketorolac Tromethamine (Toradol) 30 mg IVPUSH Q6H [facility] Stop: 11/22/19 09:46 Last Admin: 11/22/19 10:10 Dose: 30 mg Metoclopramide HCl (Reglan) Confirm Administered Dose 10 mg .ROUTE .STK-MED ONE Stop: 11/21/19 13:57 Morphine Sulfate (Duramorph Pf) Confirm Administered Dose 10 mg .ROUTE .STK-MED ONE Stop: 11/21/19 07:17 Naloxone HCl (Narcan) 0.1 mg IVPUSH ONETIME PRN PRN Reason: Respiratory Depression Stop: 11/22/19 08:56 Propofol (Diprivan 20 Ml) Confirm Administered Dose 200 mg .ROUTE .STK-MED ONE Stop: 11/21/19 07:17 - Infant Interaction Support Person: - Recovery Exam Fundal Tone: Firm Fundal Level: 1 Fingerbreadths Above Umbilicus Fundal Placement: Midline Lochia Amount: Scant Lochia Color: Rubra/Red Perineum Description: Intact, Minimal Bruising/Swelling Bladder Status: Indwelling Catheter in Place Urinary Elimination: Voided - Exam General: Alert HEENT: Pupils Equal Neck: Supple Lungs: Clear to Auscultation Cardiovascular: Regular Rate, Regular Rhythm GI/Abdominal Exam: Normal Bowel Sounds Extremities: Normal Inspection, Normal Range of Motion Wound/Incisions: Dressing Dry and Intact Neurological: No New Focal Deficit Psy/Mental Status: Alert - Problem List & Annotations (1) delivery delivered SNOMED Code(s): 984728193 Code(s): O82 - ENCOUNTER FOR DELIVERY WITHOUT INDICATION Status: Acute Current Visit: Yes - Problem List Review Problem List Initiated/Reviewed/Updated: Yes - Assessment Assessment:: 34yo P2 s/p repeat POD 2 Normal lochia, Urinating Venodyne in place - Plan Plan:: Discharge home
[2019-11-23] MEDS: Docusate Sodium 100 MG Cap PO SCH (11:17)
== END 2019-11-23 12:01 | disposition home or self-care (01) | DRG 540 ==
LOC: MW.OB 05:17 → EDSTATUS 08:00 → MW.OB 16:10
PROVIDERS: ADMIT Obstetrics & Gynecology; ATTEND Obstetrics & Gynecology
PROC: 10D00Z1 Extraction of Products of Conception, Low, Open Approach (ICD-10-PCS; principal; 2019-11-21)
DX: O34.211 Maternal care for low transverse scar from previous cesarean delivery (principal); Z37.0 Single live birth; Z3A.39 39 weeks gestation of pregnancy
CPT/HCPCS: 01961; 36415; 51702; 59025; 85014; 85018; 85027; 86592; 86593; 86850; 86900; 86901; A9270-GY; J0690; J1885; J2270; J2405; J2704; J2765; J7120